=== PATIENT | male | born 2005 | race Caucasian/White ===

== ENCOUNTER → 2025-04-03 12:52 | Outpatient (REF) | payer OTHER, SELFPAY | LOC: HWRCS 12:52 | PROVIDERS: ATTENDING PHYSICIAN Nurse Practitioner Adult Health | DX: R01.1 Cardiac murmur, unspecified (principal) | CPT/HCPCS: 93306 ==

== ENCOUNTER → 2025-04-16 08:24 | Outpatient (REF) | payer BC, SELFPAY | LOC: HWRAD 08:24 | PROVIDERS: ATTENDING PHYSICIAN Internal Medicine Cardiovascular Disease; FAMILY PHYSICIAN Nurse Practitioner Adult Health | DX: Q23.81 Bicuspid aortic valve (principal); I77.89 Other specified disorders of arteries and arterioles | CPT/HCPCS: 76770 ==

== ENCOUNTER → 2025-06-09 08:32 | Outpatient (REF) | payer BC, SELFPAY | LOC: MRI 08:32 | PROVIDERS: ATTENDING PHYSICIAN Internal Medicine Cardiovascular Disease; FAMILY PHYSICIAN Nurse Practitioner Adult Health | DX: Q23.81 Bicuspid aortic valve (principal); I77.89 Other specified disorders of arteries and arterioles; R78.89 Finding of other specified substances, not normally found in blood; R93.1 Abnormal findings on diagnostic imaging of heart and coronary circulation | CPT/HCPCS: 75561; 75565; A9585 ==

== ENCOUNTER → 2025-10-24 10:14 | Outpatient (REF) | payer BC, SELFPAY | LOC: RCS 10:14 | PROVIDERS: ATTENDING PHYSICIAN Internal Medicine Cardiovascular Disease; FAMILY PHYSICIAN Nurse Practitioner Adult Health | DX: I35.1 Nonrheumatic aortic (valve) insufficiency (principal); I77.89 Other specified disorders of arteries and arterioles | CPT/HCPCS: 93306 ==